=== PATIENT | female | born 1975 | race Two or more races ===

== ENCOUNTER → 2018-09-11 | Day surgery (SDC) | payer BC ==
[~2018-09-11] MED LIST: FENTANYL CITRATE/PF 100MCG/2 ML INJ ONE; LIDOCAINE HCL 2% LOCAL INJ 5 ML SDV VIAL INJ ONE; LISINOPRIL10 MG PO; METFORMIN HCL500 MG PO; MONTELUKAST SOD10 MG PO; OMEPRAZOLE40 MG PO; PROAIR HFA INH8.5 GM INH; PROPOFOL IV EMULSION 10 MG/ML 20 ML VIAL ONE; VITAMIN B-121000 MCG PO; VITAMIN D3400 UNIT PO; XYZAL5 MG PO
[2018-09-11 07:50] VITALS: BP 147/94
--- NOTE | 2018-09-11 07:58 | Operative Report ---
DATE OF PROCEDURE: September 11, 2018 PREOPERATIVE DIAGNOSIS: Gastroesophageal reflux disease. POSTOPERATIVE DIAGNOSES: 1. Hiatal hernia. 2. Gastroesophageal reflux disease. PREOPERATIVE INDICATION: Assess for any mucosal disease or other upper GI abnormalities. PROCEDURE: Esophagogastroduodenoscopy. ANESTHESIA: Moderate sedation. ASSISTANTS: None. FLUIDS: As per anesthesia. EBL: Zero. DRAINS: None. COMPLICATIONS: None. SPECIMENS: None. FINDINGS: 1. A 3-cm hiatal hernia. 2. Otherwise normal upper GI endoscopy. PROCEDURAL DETAILS: The patient was brought to the endoscopy suite and was sedated with IV propofol. A preprocedural pause was performed. An adult-size endoscope was introduced through the oropharynx and guided to the second portion of the duodenum. There was a moderate-size hiatal hernia seen. No other abnormalities in the GI tract were noted on the upper GI endoscopy. Prior to removing endoscope, the stomach was desufflated. The patient tolerated the procedure well. Job#: [id number]
--- NOTE | 2018-09-11 10:20 | NUR ---
SPIRITUAL CARE - Pre-Surgery Assessment: Pt in bed. Pt's partner at bedside. Pt reported supportive attention from family and friends. Intervention: I provided pastoral presence, hospitality, and sympathetic listening. I acquainted pt with availability of health insurance sales agent while hospitalized. Outcome: Pt expressed appreciation for visit. No need for follow up indicated at this time. [facility] Spiritual [facility] Department O: [phone] Pager: [phone] ([phone])
== END | disposition home or self-care (01) ==
LOC: OR 05:52
PROVIDERS: ATTEND Surgery
DX: K21.9 Gastro-esophageal reflux disease without esophagitis (principal); K44.9 Diaphragmatic hernia without obstruction or gangrene; K58.9 Irritable bowel syndrome, unspecified; E66.01 Morbid (severe) obesity due to excess calories; E11.9 Type 2 diabetes mellitus without complications; J45.909 Unspecified asthma, uncomplicated; G47.33 Obstructive sleep apnea (adult) (pediatric); E78.5 Hyperlipidemia, unspecified; I10 Essential (primary) hypertension; Z91.048 Other nonmedicinal substance allergy status; Z01.810 Encounter for preprocedural cardiovascular examination; Z79.84 Long term (current) use of oral hypoglycemic drugs; Z68.41 Body mass index [BMI] 40.0-44.9, adult
CPT/HCPCS: 36415; 43235; 81025; 82948; 93005; J2001; J2704